=== PATIENT | male | born 1990 | race African-American/Black ===

== ENCOUNTER 2022-07-06 13:28 | Emergency (ER) | payer OTHER ==
[2022-07-06 14:29] VITALS: BP 155/99; PULSE 85; RESP 17; TEMP 98.1; BMI 27.4
[2022-07-06] MEDS ORDERED: KETOROLAC TROMETHAMINE 30 MG/1 ML VIAL IM ONE (14:52)
[2022-07-06] MEDS ORDERED: KETOROLAC TROMETHAMINE 30 MG/1 ML VIAL ONE (14:53)
== END 2022-07-06 15:56 | disposition home or self-care (01) ==
LOC: JERFT 13:28
PROC: 3E0233Z Introduction of Anti-inflammatory into Muscle, Percutaneous Approach (ICD-10-PCS; principal; 2022-07-06)
DX: S82.832A Other fracture of upper and lower end of left fibula, initial encounter for closed fracture (principal)
CPT/HCPCS: 73610-TC-LT-FY; 99284-25